=== PATIENT | female | born 1990 | race Two or more races ===

== ENCOUNTER 2025-02-20 12:00 | Day surgery (SDC) | payer MEDICAID, SELFPAY ==
[2025-02-17 10:00] VITALS: BMI 36.8
--- NOTE | 2025-02-17 10:15 | EKG_ITS ---
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
[2025-02-17 11:28] LABS: Alanine Aminotransferase 11 U/L (10-49); Albumin, Serum 4.7 gm/dL (3.5-5.0); Albumin/Globulin Ratio 1.3 (1.2-2.2); Alkaline Phosphatase 89 U/L (46-116); Anion Gap 8 (7-16); Aspartate Amino Transferase 17 U/L (0-34); BUN/Creatinine Ratio 20 Ratio (12-20); Bilirubin,Total 0.6 mg/dL (0.3-1.2); Blood Urea Nitrogen 14 mg/dL (9-23); Calcium 9.8 mg/dL (8.3-10.6); Calcium (Corrected) 9.8 mg/dL (8.5-10.1); Carbon Dioxide 25.3 mMol/L (20.0-31.0); Chloride 106 mMol/L (98-107); Creatinine (Component) 0.7 mg/dL (0.6-1.3); Globulin 3.7 gm/dL (2.3-3.5); Glucose 102 mg/dL (74-106); Osmolality,Calculated 278 (275-295); Sodium 139 mMol/L (136-145); Total Protein 8.4 gm/dL (5.7-8.2); eGFR > 60 See Note
[2025-02-17 11:41] LABS: HCG Qualitative,Urine Negative
[2025-02-20] VITALS (9 sets, daily range): BP systolic 105–145; BP diastolic 55–92; PULSE 79–115; RESP 14–21; TEMP 36.6–36.9; O2SAT 94–99; BMI 36.6
--- NOTE | 2025-02-20 15:58 | SUR.PHASEI ---
1558: Pt. arrived with oral airway in place, vitals stable, breathing unlabored, no signs of distress, dressing behind right ear CDI, no active bleed noted, cottonball in place, report received by MD Cannon and Clayton CHIRINOS.
--- NOTE | 2025-02-20 16:04 | PD.SUROPNT ---
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 The long process of the malleus was eroded. The ossicular chain was intact and mobile. There were adhesions overlying the incus and stapes which were removed. Procedure Description Indications: This is a 34-year-old female with a large perforation described above and hearing loss. Treatment options were discussed and she wished to proceed with surgical intervention. She denied any recent history of recurrent ear infections. CT scan was negative for infection as well. Risk of bleeding infection hearing loss decreased sense of taste and failure of the graft were discussed with her and she wished to proceed. Patient was marked and shaved in the preoperative setting and transferred to the operative suite where she was anesthetized and intubated. Timeout was performed. The right ear was then sterilely prepped and draped. The canal was irrigated with warm saline solution and suction. The postauricular area was injected with 1% lidocaine with 1 100,000 Oh epinephrine. An incision was made superiorly at the meatus due to the narrow meatus to increase visibility. The perforation was visualized and margins were prepped with the third millimeter hook and the squamous epithelium removed from the anterior annulus and the anterior canal wall with the round knife. The tympanic membrane was elevated off the remaining process of the long process of the malleus. Posterior tympanomeatal flap was elevated the chorda tympani nerve identified and preserved. CO2 laser was used to increase visibility with removal of adhesions overlying the incus and stapes being careful not to contact them. They were visualized and mobility was tested and found to be good. Temporalis fascia been harvested earlier postauricularly. This was brought into the field and placed in an underlay overlay fashion. Surgifoam was placed in the middle ear underneath the graft to help hold it in position. The graft was then draped on the posterior canal wall and the tympanomeatal flap returned to its normal position. Surgifoam dipped in saline was then packed on top of the graft followed by double antibiotic ointment on top of the packing. The external meatus was packed with a sterile cottonball coated with antibiotic ointment. Postauricular incision was closed in a multilayer fashion with 4-0 Vicryl and then Dermabond on the skin. The patient was awakened and taken recovery room in stable condition Anesthesia GETA Pathology / specimen None Estimated Blood Loss 2 Surgeon Matteo Kumar DO Surgical Staff Operation Date: 02/20/25 14:30 Case Staff Anesthesiologist: Tank Cannon
[2025-02-20] MEDS: fentaNYL CIT INJ 50 mCg/ML AMP 2ML IV ×2 (16:18→16:41)
--- NOTE | 2025-02-20 16:31 | SUR.PHASEII ---
Received report on pt. s/p surgery from Sanjana CHIRINOS. Pt. is resting, eyes open, AAOx3, responds to verbal commands, VSS, c/o pain 8/10 to right ear, will provide pain medication per order.
--- NOTE | 2025-02-20 16:33 | SUR.PHASEII ---
1633: Pt. AAOx4, vitals stable, breathing unlabored, no complaint of pain or nausea, dressing to right ear CDI, no active bleed noted, report given to Lizzy RN to resume care.
[2025-02-20] MEDS: HYDROcodone/APAP 5/325 TABLET 1 TAB PO (16:50)
== END 2025-02-20 17:15 | disposition home or self-care (01) ==
PROVIDERS: Anesthesiology; Referring Provider Otolaryngology; Visit Provider Otolaryngology
PROC: (CPT 69632; principal; 2025-02-20 14:15)
DX: H72.2X1 Other marginal perforations of tympanic membrane, right ear (principal); H72.91 Unspecified perforation of tympanic membrane, right ear; H90.8 Mixed conductive and sensorineural hearing loss, unspecified; Z01.810 Encounter for preprocedural cardiovascular examination
CPT/HCPCS: 69632; 36415; 80053; 81025; 93005; A4217; A4649; J0131; J0171; J0690; J1100; J2704; J2765; J3010; J3473; J3490; A9270